=== PATIENT | male | born 1995 ===

== ENCOUNTER 2016-10-25 23:54 | Emergency (ER) | payer SELFPAY ==
[~2016-10-25 23:54] MED LIST: ZYPREXA10 M1 PO; ZYPREXA15 M1 PO
[2016-10-26] MEDS ORDERED: NO HOME MEDICATION XX (00:03)
== END 2016-10-26 01:02 ==
LOC: EDMED 23:54
PROC: 0HQDXZZ Repair Right Lower Arm Skin, External Approach (ICD-10-PCS; principal; 2016-10-26)
DX: S51.811A Laceration without foreign body of right forearm, initial encounter (principal); F31.9 Bipolar disorder, unspecified; F20.9 Schizophrenia, unspecified; F17.200 Nicotine dependence, unspecified, uncomplicated; Z23 Encounter for immunization; X78.1XXA Intentional self-harm by knife, initial encounter; Y92.019 Unspecified place in single-family (private) house as the place of occurrence of the external cause

== ENCOUNTER 2016-11-04 15:07 | Emergency (ER) | payer SELFPAY ==
[~2016-11-04 15:07] MED LIST changes: +NO HOME MEDICATION XX
== END 2016-11-04 16:26 | disposition left against medical advice (07) ==
LOC: EDMED 15:07
DX: M54.6 Pain in thoracic spine (principal); Z53.29 Procedure and treatment not carried out because of patient's decision for other reasons

== ENCOUNTER 2016-11-04 17:09 | Emergency (ER) | payer SELFPAY | END 2016-11-04 18:26 | disposition T | LOC: EDMED 17:09 | DX: M54.9 Dorsalgia, unspecified (principal); F20.0 Paranoid schizophrenia ==